=== PATIENT | female | born 1950 | race Caucasian/White ===

== ENCOUNTER 2018-03-24 11:29 | Emergency (ER) | payer OTHER ==
[2018-03-24 11:39] VITALS: RESP 18; TEMP 98.1
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
[2018-03-24] MEDS ORDERED: ACETAMINOPHEN TAB 500 MG TAB PO STA (12:49)
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
[2018-03-24 14:03] VITALS: BP 144/68; PULSE 85
== END 2018-03-24 14:17 | disposition home or self-care (01) ==
LOC: EC 11:29
DX: Z04.1 Encounter for examination and observation following transport accident (principal); M54.2 Cervicalgia; M54.9 Dorsalgia, unspecified; R51 Headache; I10 Essential (primary) hypertension; Z79.899 Other long term (current) drug therapy; Z91.048 Other nonmedicinal substance allergy status; Z98.890 Other specified postprocedural states
CPT/HCPCS: 70450; 72125; 72131; 99284

== ENCOUNTER → 2020-01-31 | Outpatient (CLI) | payer MEDICARE, BC ==
[2020-01-31 13:37] LABS: HGB 13.4 gm/dL (11.4-16.0); Hypochromasia Moderate; MCV 83.8 fL (80.0-100.0); Mean Platelet Volume 6.9; Platelet Count 365 k/uL (150-450); RBC 5.14 m/uL (3.80-5.40); RDW 15.4 % (11.5-15.5); WBC 9.9 k/uL (3.8-10.6)
[2020-01-31 13:39] LABS: Appearance,Urine Clear (Clear); Bacteria,Urine Few /hpf; Bilirubin,Urine Negative (Negative); Blood,Urine Negative (Negative); Color,Urine Yellow; Glucose,Urine (UA) Negative (Negative); Ketones,Urine Negative (Negative); Leukocyte Esterase,Urine Small (Negative); Mucus,Urine Rare /hpf; Nitrite,Urine Negative (Negative); Protein,Urine Trace (Negative); Specific Gravity,Urine 1.022 (1.001-1.035); Squamous Epithelial Cell,Urine 9 /hpf (0-4); Urobilinogen,Urine <2.0 mg/dL (<2.0); WBC,Urine 9 /hpf (0-5)
[2020-01-31 13:40] LABS: INR 0.9 (<1.2); Partial Thromboplastin Time 23.6 sec (22.0-30.0); Prothrombin Time 9.4 sec (9.0-12.0)
[2020-01-31 15:01] LABS: Calcium 9.8 mg/dL (8.4-10.2); Potassium 4.2 mmol/L (3.5-5.1); Total Bilirubin 0.8 mg/dL (0.2-1.3); Total Protein 7.8 g/dL (6.3-8.2)
== END | disposition home or self-care (01) ==
LOC: LABPAT 11:07
PROVIDERS: ATTEND Orthopaedic Surgery
DX: Z01.818 Encounter for other preprocedural examination (principal); M17.11 Unilateral primary osteoarthritis, right knee
CPT/HCPCS: 80053; 81001; 85027; 85610; 85730; 87070

== ENCOUNTER 2020-02-11 09:49 | Inpatient (IN) | payer MEDICARE, BC ==
[2020-02-06 17:44] VITALS: BMI 50.9
[~2020-02-11 09:49] MED LIST: ACETAMINOPHEN TAB 500 MG TAB PO ONE; GABAPENTIN 300 MG CAP PO ONE; HYDROmorphone 0.5 MG/0.5 ML SYRINGE IVP PRN; MELOXICAM 7.5 MG TAB PO ONE; ONDANSETRON 4 MG/2 ML VIAL IVP ONE; ROPIVACAINE 246.25 MG, EPINEPHrine 0.5 MG, KETOROLAC 30 MG, cloNIDine HCL/PF 80 MCG, WA... MISCELLANE ONE; TRANEXAMIC ACID 1,000 MG in SODIUM CHLORIDE 0.9% 100 ML IVPB ONE; VANCOMYCIN 2,250 MG in SODIUM CHLORIDE 0.9% 500 ML 500 ML IVPB ONE; ceFAZolin 3 GM in SODIUM CHLORIDE 0.9% 100 ML IVPB ONE; fentaNYL (PF) 50 MCG/ML 2 ML AMP IV PRN
[2020-02-11] MEDS ORDERED: ONDANSETRON 4 MG/2 ML VIAL ONE (10:18)
[2020-02-11] MEDS: LACTATED RINGERS 1,000 ML IV SCH ×3 (10:43→17:51)
[2020-02-11 10:45] LABS: Glucose,Whole Blood 112 mg/dL (75-99)
[2020-02-11] MEDS ORDERED: DEXAMETHASONE SOD PHOSPHATE 4 MG/ML 1 ML VIAL IVP ONE (10:51)
[2020-02-11] MEDS ORDERED: fentaNYL (PF) 50 MCG/ML 2 ML AMP IVP ONE (10:57)
[2020-02-11] MEDS ORDERED: MIDAZOLAM 2 MG/2 ML VIAL IVP ONE (10:57)
[2020-02-11] MEDS ORDERED: NA PHOS,M-B/NA PHOS,DI-BA 133 ML ENEMA RECTAL PRN (11:30)
[2020-02-11] MEDS ORDERED: bisacodyL 10 MG SUPP RECTAL PRN (11:30)
[2020-02-11] MEDS ORDERED: HYDROmorphone 0.5 MG/0.5 ML SYRINGE IVP PRN (11:30)
[2020-02-11] MEDS ORDERED: MAGNESIUM HYDROXIDE 2,400 MG/10 ML CUP PO PRN (11:30)
[2020-02-11] MEDS ORDERED: diazePAM 5 MG TAB PO PRN (11:30)
[2020-02-11] MEDS ORDERED: hydrOXYzine pamoate 25 MG CAP PO PRN (11:30)
[2020-02-11] MEDS ORDERED: HYDROmorphone 0.2 MG/1 ML SYRINGE IVP PRN (11:30)
[2020-02-11] MEDS ORDERED: NALOXONE 0.4 MG/ML 1 ML VIAL IV PRN (11:30)
[2020-02-11] MEDS ORDERED: ONDANSETRON 4 MG/2 ML VIAL IVP PRN (11:30)
[2020-02-11] MEDS ORDERED: HYDROcodone/APAP 7.5-325MG 1 EACH TAB PO PRN ×2 (11:32)
[2020-02-11] MEDS ORDERED: PROPOFOL 10 MG/ML 20 ML VIAL IV ONE (11:44)
[2020-02-11] MEDS ORDERED: MIDAZOLAM 2 MG/2 ML VIAL ONE (11:44)
[2020-02-11] MEDS ORDERED: LIDOCAINE 1% INJ 10MG/ML (20 ML MDV) ONE (11:44)
[2020-02-11] MEDS ORDERED: PHENYLEPHRINE-0.9% NACL SYG 1 MG/10 ML SYRINGE ONE (11:44)
[2020-02-11] MEDS ORDERED: SODIUM CHLORIDE 0.9% 100 ML BAG ONE (11:44)
[2020-02-11] MEDS ORDERED: fentaNYL (PF) 50 MCG/ML 2 ML AMP ONE (11:44)
[2020-02-11] MEDS ORDERED: SUCCINYLCHOLINE CHLORIDE 100 MG/5 ML SYR IV ONE (11:44)
[2020-02-11] MEDS ORDERED: TRANEXAMIC ACID 1,000 MG/10 ML VIAL ONE (11:44)
[2020-02-11] MEDS ORDERED: ROPIVACAINE 5 MG/ML 30 ML VIAL ONE (11:44)
[2020-02-11] MEDS ORDERED: ePHEDrine SULFATE/0.9% NACL/PF 50 MG/5 ML SYRINGE IV ONE (11:44)
[2020-02-11] MEDS ORDERED: LACTATED RINGERS 1,000 ML IV ONE ×2 (13:02→15:04)
--- NOTE | 2020-02-11 13:21 | P.OP ---
Date of Procedure: 02/11/20 Preoperative Diagnosis: Severe osteoarthritis right knee Postoperative Diagnosis: Severe osteoarthritis right knee Procedure(s) Performed: right total knee arthroplasty Implants: [employer] Journey II CR Oxinium cruciate retaining femoral component size 6, right [employer] Journey nonporous tibial baseplate size 6, right [employer] Journey II, XLPE Deep Dished articular insert, size 10 mm, Size 5-6, right [employer] Journey Stefanie II resurfacing patellar component, oval, 29 mm All components were cemented using Palacos R bone cement The articulation is Oxinium on polyethylene Anesthesia: spinal Surgeon: Galo Bojorquez Industrial [employer] Polisher #1: Patricia Ibrahim Estimated Blood Loss (ml): 30 Pathology: other (Bone and cartilage) Condition: stable Disposition: PACU Indications for Procedure: After failure of conservative treatment we discussed the surgical and nonsurgical treatment options at length. Patient wishes to proceed with a total knee arthroplasty. Complications specific to this procedure were discussed at length, including but not limited to infection, bleeding, stiffness, and nerve injury. Covid-19 was also discussed at length with the patient, and they are aware of the current policies and procedures. The patient was given the option of delaying surgery, but they elect to proceed knowing these risks. Patient is aware of all these complications and informed consent was obtained Operative Findings: Operative findings are consistent with severe osteoarthritis of the right knee Description of Procedure: Patient was seen in the preoperative area and the consent was reviewed and the operative site was marked with a skin marker. The patient verified the procedure and the operative site. An adductor canal pain catheter was placed by anesthesia in the preoperative area. The patient was then brought to the operating room and given preoperative antibiotics intravenously. A gram of transexamic acid was given intravenously. A spinal anesthetic was administered by the anesthesia department. A tourniquet was placed on the upper thigh and the lower extremity was prepped with chlorhexidine and draped in usual sterile fashion. A universal timeout was then performed which confirmed the patient's name, surgical site, ALLERGIES, and consent. The lower extremity was then exsanguinated and tourniquet was inflated to 250 mmHg. A standard anterior midline approach to the knee was performed. The skin and subcutaneous tissue were sharply dissected down to the patellar tendon. A medial parapatellar arthrotomy was then performed. The knee was then extended, the patellar was everted, and the knee was again flexed. The infra-patellar fat pad was removed in order to enhance exposure. The anterior horns of both menisci were excised, and a release was performed to the posterior medial aspect of the knee. On gross visual inspection, there was complete loss of articular cartilage in the medial and patellofemoral joint spaces. There was also significant cartilage damage in the lateral compartment. There were multiple periarticular osteophytes globally about the knee which were then removed with a Ronguer. The femoral canal was then opened with the 9.5 mm intramedullary drill. The 8 mm intramedullary mason was then inserted into the femoral canal with the distal femoral cutting guide set for 5 of valgus. The distal femoral cutting block was then pinned in place. The intramedullary mason was then removed, and the distal femur was then cut. The cutting block was then removed and the cut was checked for symmetry. The resected bone was then measured to confirm the appropriate distal femoral resection. Next, the sizing guide was then placed and set for 3 external rotation based off of the epicondylar axis and Whitesides line. Pins were then placed and the drill holes, and the femur was sized with the sizing stylus. The pins were then removed, and the sizing guide was then removed. The spikes of the femoral block was then placed into the predrilled holes, and malleted into place. Two 45 mm pins were then placed into the fixation holes on the cutting block. An tahmina wing was then used to ensure there would be no notching with the anterior cut. The anterior condyles were cut without notching. The anterior chord cut was then performed, followed by the posterior cut, posterior chamfer cut, and the anterior chamfer cut. The collateral ligaments were protected during the entire process. The cutting block was then removed. Any remaining bone and osteophytes were removed from the femur with a Rominger. The femoral canal was plugged with autologous bone. Attention was then directed to the tibia. The remaining ACL was removed with a Ronguer, and the tibia was then gently subluxed forward with a large bent knee retractor. Any remaining menisci were excised. The posterior lateral corner was cauterized in order to coagulate the lateral geniculate artery. The extra medullary tibial cutting guide was then placed, set for the appropriate rotation, slope, and depth of resection. The proximal tibia cutting guide was then pinned in place. Proximal tibia was then cut and sized. The femoral trial was placed. A narrow saw blade was then used to remove the anterior intracondylar femoral bone. The CR notch trial was then placed. The tibial trial was placed with the appropriate-sized insert. The knee was able to fully extend and flex to 130 and was stable throughout all range of motion. The knee was then extended and the patella was everted. Patella was then measured, and then using an osteotomy guide, the patella was cut at the appropriate level. The patella was then measured and drilled and the patella trial was then placed. The knee was then taken through range of motion with the patella trial and the patella tracked normally using the no thumbs technique.. The knee was then extended patella trial was then removed and the patella was everted. Knee was then flexed and lug holes were drilled through the femoral trial and the femoral trial was then removed. The tibial was then re-exposed, and the tibial broach guide was then pinned in place after it was set for the appropriate rotation to allow for the most coverage without overhang. The tibia was then reamed and broached. The cut surfaces of bone were then irrigated with pulsatile lavage. The posterior structures were injected with the ropivacaine solution. The knee was also irrigated with Irrisept solution. The components were then opened, the cement was mixed, and the components were then cemented in place. The cement was allowed to harden with the knee in full extension. While the cement was hardening, the remaining soft tissues were then injected with a ropivacaine solution, which consisted of 246.25 mg of ropivacaine, 0.5 mg of epinephrine, 30 mg of Toradol, 80 g of clonidine, and 48.45 mL of sterile water, for a total of 100 mL of fluid injected. After the cemented hardened. The tourniquet was released, and hemostasis was obtained. A second gram of transexamic acid was given. The knee was again irrigated. The knee was again taken through range of motion and found to be stable throughout all range of motion of 0-130, and the patella tracked normally. The fascia was then closed with 0 Vicryl followed by #2 strata fix suture. The subcutaneous tissue was closed with 3-0 Vicryl and 3- 0 strata fix. Exofin glue was used for the skin and placed with the knee in flexion. After the glue had dried, and Optafoam silver impregnated dressing was applied. The patient was then transferred to recovery room in stable condition. The certified pathology assistant BRAYAN La was required due the complexity surgery and the need for a skilled rn medical surgical. She assisted in positioning, draping, retraction, and closure of the wound.
[2020-02-11] MEDS ORDERED: ROPIVACAINE 0.2%-NS ON-Q PUMP 1,090 MG, EMPTY PAIN BALL 1 EACH MISCELLANE PRN (13:41)
--- NOTE | 2020-02-11 13:53 | P.ANPRN ---
Procedure Note - Anesthesia - Nerve Block Performed Right Adductor Canal Time Out Performed: Yes (:55) Date of Procedure: 02/11/20 Procedure Start Time: Procedure Stop Time: : Location of Patient: PreOp Indication: Acute Post-Operative Pain, Requested by Surgeon (Dr Galo Bojorquez) Sedation Type: Sedate with meaningful contact maintained Preparation: Sterile Prep, Sterile Dressing Position: Supine Catheter: Indwelling Needle Types: Pajunk Needle Gauge: 21 Ultrasound used to visualize needle placement: Yes Ultrasound used to observe medication spread: Yes Injectate: 0.5% Ropivacaine (see comment for volume) (20cc) Blood Aspirated: No Pain Paresthesia on Injection Noted: No Resistance on Injection: Normal Image Stored and Saved: Yes Events: Uneventful and Well Tolerated
[2020-02-11 14:03] LABS: Glucose,Whole Blood 134 mg/dL (75-99)
[2020-02-11] MEDS: HYDROmorphone 0.5 MG/0.5 ML SYRINGE IVP PRN ×2 (14:20→14:22)
--- NOTE | 2020-02-11 14:32 | XR ---
EXAMINATION TYPE: XR knee limited RT DATE OF EXAM: 02/11/2020 COMPARISON: NONE TECHNIQUE: Two views submitted HISTORY: Post op FINDINGS: There is a prosthetic knee in near anatomic alignment. There is soft tissue edema and emphysema. IMPRESSION: 1. Postoperative change. Appears in near-anatomic alignment
[2020-02-11] MEDS: SODIUM CHLORIDE 0.9% 1,000 ML IV SCH ×2 (17:51→21:49)
[2020-02-11] MEDS: SENNOSIDES-DOCUSATE SODIUM 1 EACH TAB PO SCH (21:49)
[2020-02-11] MEDS ORDERED: SODIUM CHLORIDE 5% OPHTH DROPS 15 ML BTL BOTH EYES PRN (22:25)
[2020-02-11] MEDS ORDERED: VANCOMYCIN 2,250 MG in SODIUM CHLORIDE 0.9% 250 ML IVPB ONE (23:00)
[2020-02-12] MEDS: LEVOTHYROXINE 100 MCG TAB PO SCH (05:36)
[2020-02-12 06:32] LABS: Basophils % (A) 0 %; Eosinophils % (A) 0 %; HCT 36.2 % (34.0-46.0); HGB 11.1 gm/dL (11.4-16.0); Hypochromasia Moderate; Lymphocytes # (A) 1.4 k/uL (1.0-4.8); Lymphocytes % (A) 17 %; MCH 25.6 pg (25.0-35.0); MCHC 30.7 g/dL (31.0-37.0); MCV 83.4 fL (80.0-100.0); Mean Platelet Volume 6.8; Monocytes # (A) 0.4 k/uL (0-1.0); Monocytes % (A) 5 %; Neutrophils # (A) 6.4 k/uL (1.3-7.7); Neutrophils % (A) 76 %; Platelet Count 258 k/uL (150-450); RBC 4.34 m/uL (3.80-5.40); RDW 15.4 % (11.5-15.5); WBC 8.4 k/uL (3.8-10.6)
[2020-02-12 06:50] LABS: Glucose,Whole Blood 112 mg/dL (75-99)
--- NOTE | 2020-02-12 06:50 | P.PN ---
Progress Note - Text The patient is status post right adductor canal catheter placement. The catheter was placed for postoperative pain control, status post total right arthroplasty. Ropivacaine 0.2% is infusing at 8 mLs per hour. The patient has no complaints of right lower extremity numbness or weakness. Patient's VAS score is 1-2-10. Assessment: Patient's adductor canal catheter is in place and working appropriately. Plan: continue infusion and adjust it as needed.
--- NOTE | 2020-02-12 08:30 | P.PN ---
Subjective Progress Note Date: 02/12/20 This is a 69-year-old female who is status post right total knee arthroplasty. This is postoperative day #1 and patient is seen and evaluated at bedside with Dr. Galo Bojorquez. Patient states that her pain is well controlled and she denies any new complaints today. Patient denies any fever/chills, numbness, weakness, tingling, abdominal pain, shortness of breath or chest pain. Objective - Vital Signs Vital signs: Vital Signs Temp 98.1 F 02/12/20 03:11 Pulse 68 02/12/20 03:11 Resp 17 02/12/20 04:40 BP 123/69 02/12/20 03:11 Pulse Ox 96 02/12/20 03:11 Intake & Output 02/11/20 02/12/20 02/12/20 18:59 06:59 18:59 Intake Total 3050 Output Total 30 Balance 3020 Weight 152.3 kg Intake: IV 3050 Output: Estimated Blood Loss 30 Other: Voiding Method Toilet # Voids 2 - Exam Vital signs are stable. Patient is in no acute distress and is alert and oriented 3. Calf is soft and nontender to palpation. Dressing is clean, dry, and intact. Patient has full foot and ankle motion without pain or difficulty. Neurovascular status and circulatory status are intact. - Labs CBC & Chem 7: 02/12/20 05:29 Labs: Abnormal Lab Results - Last 24 Hours (Table) 02/11/20 02/11/20 02/12/20 Range/Units 10:44 14:01 05:29 Hgb 11.1 L (11.4-16.0) gm/dL MCHC 30.7 L (31.0-37.0) g/dL POC Glucose (mg/dL) 112 H 134 H (75-99) mg/dL 02/12/20 Range/Units 06:49 Hgb (11.4-16.0) gm/dL MCHC (31.0-37.0) g/dL POC Glucose (mg/dL) 112 H (75-99) mg/dL Assessment and Plan (1) S/P total knee arthroplasty Current Visit: Yes Status: Acute Code(s): Z96.659 - PRESENCE OF UNSPECIFIED ARTIFICIAL KNEE JOINT SNOMED Code(s): 4582309811129 (2) Osteoarthritis of right knee Current Visit: Yes Status: Acute Code(s): M17.11 - UNILATERAL PRIMARY O STEOARTHRITIS, RIGHT KNEE SNOMED Code(s): 071519386229000 Plan: #1 Continue with routine postoperative care and pain control, leave dressing in place for ten days. #2 Anticoagulation with Eliquis due to history of PE. #3 Physical therapy and CPM today. #4 Appreciate input from medicine. #5 Anticipate discharge home with home care or to the ECF in the next 24-48 hours.
[2020-02-12] MEDS: APIXABAN 2.5 MG TABLET PO SCH ×2 (08:48→21:29)
[2020-02-12] MEDS: CHOLECALCIFEROL 1,000 UNIT TAB PO SCH (08:49)
[2020-02-12] MEDS: Dextroamphetamine/Amphetamine [Adderall] 20 MG Tablet PO SCH (09:23)
--- NOTE | 2020-02-12 13:18 | P.CONS ---
History of Present Illness - Reason for Consult Hypertension - History of Present Illness Patient is a pleasant 69-year-old female admitted for a relative right knee arthroplasty. Patient is clinically doing well blood pressure is a bit lower today. Patient is on losartan and also had a fever thiazide which will be held. The patient is being discharged today these 2 medications need to be held patient is clinically doing well denied any fever chills patient is passing gas. Review of Systems REVIEW OF SYSTEMS: CONSTITUTIONAL: No fever, no malaise, no fatigue. HEENT: No recent visual problems or hearing problems. Denied any sore throat. CARDIOVASCULAR: No chest pain, orthopnea, PND, no palpitations, no syncope. PULMONARY: No shortness of breath, no cough, no hemoptysis. GASTROINTESTINAL: No diarrhea, no nausea, no vomiting, no abdominal pain. NEUROLOGICAL: No headaches, no weakness, no numbness. HEMATOLOGICAL: Denies any bleeding or petechiae. GENITOURINARY: Denies any burning micturition, frequency, or urgency. MUSCULOSKELETAL/RHEUMATOLOGICAL: Denies any joint pain, swelling, or any muscle pain. ENDOCRINE: Denies any polyuria or polydipsia. The rest of the 14-point review of systems is negative. Past Medical History Past Medical History: Diabetes Mellitus, Eye Disorder, Hearing Disorder / Deafness, Hypertension, Osteoarthritis (OA), Pulmonary Embolus (PE), Seizure Disorder, Sleep Apnea/CPAP/BIPAP, Thyroid Disorder Additional Past Medical History / Comment(s): Hx seizure x1 w/ fever as child. NIDDM since 09/2019, being monitored. Glaucoma. Hx kidney stone. Uses BiPAP. Mild BLE edema. History of Any Multi-Drug Resistant Organisms: None Reported Past Surgical History: Back Surgery, Breast Surgery, Joint Replacement, Orthopedic Surgery, Tonsillectomy Additional Past Surgical History / Comment(s): Lumbar fusion L2-4. Cervical disc surg. Rt Total Hip, Lt Total Knee. IVC filter, later removal. Bx Lt breast. Cataracts w/ lens implants. D&C. Past Anesthesia/Blood Transfusion Reactions: No Reported Reaction Past Psychological History: No Psychological Hx Reported Smoking Status: Never smoker Past Alcohol Use History: Rare Past Drug Use History: None Reported Additional Drug Use History / Comment(s): CBD cream use prn - Past Family History Brother(s) Family Medical History: Cancer Additional Family Medical History / Comment(s): prostate, lymphoma Sister(s) Family Medical History: Cancer, Pulmonary Embolus Additional Family Medical History / Comment(s): uterine cancer Medications and Allergies Home Medications Medication Instructions Recorded Confirmed Type Acetaminophen Tab [Tylenol Tab] 650 mg PO Q6HR PRN 03/24/18 02/06/20 History Cholecalciferol [Vitamin D3] 5,000 unit PO DAILY 03/24/18 02/06/20 History DULoxetine HCL [Cymbalta] 120 mg PO HS 03/24/18 02/06/20 History Dextroamphetamine/Amphetamine 20 mg PO DAILY 03/24/18 02/06/20 History [Adderall] Latanoprost [Xalatan 0.005%] 1 drop BOTH EYES HS 03/24/18 02/06/20 History Levothyroxine Sodium [Synthroid] 100 mcg PO DAILY 03/24/18 02/06/20 History Lidocaine [Lidoderm 5% Patch] 1 patch TRANSDERM DAILY PRN 03/24/18 02/06/20 History Metaxalone [Skelaxin] 800 mg PO TID PRN 03/24/18 02/06/20 History diazePAM [Valium] 5 mg PO DAILY PRN 03/24/18 02/06/20 History hydroCHLOROthiazide [Hydrodiuril] 25 mg PO DAILY 03/24/18 02/06/20 History Losartan Potassium [Cozaar] 25 mg PO HS 02/06/20 02/06/20 History Sodium Chloride 5% Ophth Soln 1 drops BOTH EYES DIRECTED PRN 02/06/20 02/06/20 History [Prasanth 128] Vit C/E/Zn/Coppr/Lutein/Zeaxan 1 each PO BID 02/06/20 02/06/20 History [Preservision Areds 2 Softgel] Apixaban [Eliquis] 2.5 mg PO BID #24 tab 02/12/20 Rx HYDROcodone/APAP 7.5-325MG [[place] 1 - 2 tab PO Q6H PRN #32 tab 02/12/20 Rx 7.5-325] Sennosides [Senokot] 2 tab PO DAILY PRN #60 tablet 02/12/20 Rx Allergies Allergy/AdvReac Type Severity Reaction Status Date / Time mold Allergy Cough Verified 02/11/20 10:32 Physical Exam Vitals: Vital Signs Temp Pulse Pulse Resp BP Pulse Ox 02/12/20 08:31 98.7 F 77 16 94/56 95 02/12/20 04:40 17 02/12/20 03:11 98.1 F 68 17 123/69 96 02/11/20 23:36 17 02/11/20 19:58 17 02/11/20 19:46 98.0 F 71 18 122/67 93 L 02/11/20 17:40 16 118/64 90 L 02/11/20 16:59 76 18 123/59 95 02/11/20 16:00 77 16 123/58 95 02/11/20 15:30 78 16 110/57 95 02/11/20 15:00 80 16 123/56 95 02/11/20 14:45 77 16 122/58 96 02/11/20 14:30 74 16 124/59 96 02/11/20 14:15 78 16 128/58 98 02/11/20 14:00 77 16 143/65 98 02/11/20 13:52 98.7 F 80 16 134/61 98 Intake and Output 02/11/20 02/12/20 02/12/20 22:59 06:59 14:59 Intake Total 1000 Balance 1000 Intake: IV 1000 Other: Voiding Method Toilet Toilet # Voids 1 2 2 Weight 152.3 kg PHYSICAL EXAMINATION: GENERAL: The patient is alert and oriented x3, not in any acute distress. Well developed, well nourished. HEENT: Pupils are round and equally reacting to light. EOMI. No scleral icterus. No conjunctival pallor. Normocephalic, atraumatic. No pharyngeal erythema. No thyromegaly. CARDIOVASCULAR: S1 and S2 present. No murmurs, rubs, or gallops. PULMONARY: Chest is clear to auscultation, no wheezing or crackles. ABDOMEN: Soft, nontender, nondistended, normoactive bowel sounds. No palpable organomegaly. MUSCULOSKELETAL: No joint swelling or deformity. EXTREMITIES: No cyanosis, clubbing, or pedal edema. NEUROLOGICAL: Gross neurological examination did not reveal any focal deficits. SKIN: No rashes. Results CBC & Chem 7: 02/12/20 05:29 Labs: Abnormal Lab Results - Last 24 Hours (Table) 11/02/12/20 02/12/20 Range/Units 14:01 05:29 06:49 Hgb 11.1 L (11.4-16.0) gm/dL MCHC 30.7 L (31.0-37.0) g/dL POC Glucose (mg/dL) 134 H 112 H (75-99) mg/dL Assessment and Plan Plan: -Hypertension: Patient is presently hypotensive recommend to hold off for about losartan and hydrochlorothiazide and this may be because patient is postoperative and in the perioperative period -Hypertension -History of PE in the past patient is being discharged on oral Eliquis for DVT prophylaxis at this time -Hypothyroidism -Depression r -Knee arthroplasty: Pain management as per primary service.
[2020-02-12] MEDS ORDERED: DULoxetine HCL 60 MG CAPSULE.DR PO SCH (21:00)
[2020-02-12] MEDS ORDERED: LATANOPROST 0.005% OPHTH DROPS 2.5 ML BTL BOTH EYES SCH (21:00)
[2020-02-12] MEDS ORDERED: LOSARTAN 25 MG TAB PO SCH (21:00)
[2020-02-12] MEDS: ACETAMINOPHEN TAB 325 MG TAB PO PRN (21:28)
[2020-02-12] MEDS: SENNOSIDES-DOCUSATE SODIUM 1 EACH TAB PO SCH (21:29)
[2020-02-13] MEDS ORDERED: CYCLOBENZAPRINE 5 MG TAB PO PRN (01:38)
[2020-02-13] MEDS: LEVOTHYROXINE 100 MCG TAB PO SCH (06:25)
[2020-02-13] MEDS: Dextroamphetamine/Amphetamine [Adderall] 20 MG Tablet PO SCH (06:44)
[2020-02-13 07:41] VITALS: BP 102/66; PULSE 76; RESP 20; TEMP 98.7
[2020-02-13] MEDS: CHOLECALCIFEROL 1,000 UNIT TAB PO SCH (08:14)
[2020-02-13] MEDS: APIXABAN 2.5 MG TABLET PO SCH (08:14)
[2020-02-13] MEDS: ACETAMINOPHEN TAB 325 MG TAB PO PRN (08:23)
--- NOTE | 2020-02-13 09:47 | P.PN ---
Subjective Progress Note Date: 02/13/20 This is a 69-year-old female who is status post right total knee arthroplasty. This is postoperative day #2 and patient is seen and evaluated at bedside today. Patient states that her pain was worse overnight, but otherwise she denies any new complaints today. Patient denies any fever/chills, numbness, weakness, tingling, abdominal pain, shortness of breath or chest pain. Objective - Vital Signs Vital signs: Vital Signs Temp 98.7 F 02/13/20 07:00 Pulse 76 02/13/20 07:00 Resp 20 02/13/20 07:00 BP 102/66 02/13/20 07:00 Pulse Ox 93 L 02/13/20 07:00 Intake & Output 02/12/20 02/13/20 02/13/20 18:59 06:59 18:59 Other: Voiding Method Toilet # Voids 2 1 2 - Exam Vital signs are stable. Patient is in no acute distress and is alert and oriented 3. Calf is soft and nontender to palpation. Dressing is clean, dry, and intact. Patient has full foot and ankle motion without pain or difficulty. Neurovascular status and circulatory status are intact. - Labs CBC & Chem 7: 02/12/20 05:29 Assessment and Plan (1) S/P total knee arthroplasty Current Visit: Yes Status: Acute Code(s): Z96.659 - PRESENCE OF UNSPECIFIED ARTIFICIAL KNEE JOINT SNOMED Code(s): 2130505490659 (2) Osteoarthritis of right knee Current Visit: Yes Status: Acute Code(s): M17.11 - UNILATERAL PRIMARY OSTEOARTHRITIS, RIGHT KNEE SNOMED Code(s): 084882427554673 Plan: #1 Continue with routine postoperative care and pain control, leave dressing in place for ten days. #2 Anticoagulation with Eliquis due to history of PE. #3 Physical therapy and CPM today. #4 Appreciate input from medicine. #5 Anticipate discharge to [facility] tomorrow.
--- NOTE | 2020-02-13 14:16 | P.DS ---
Providers Date of admission: 02/12/20 10:13 Expected date of discharge: 02/13/20 Attending physician: Galo Bojorquez Consults: 02/11/20 11:30 Consult Physician Routine Consulting Provider: Regi Love Consult Reason/Comments: medical management and anticoagulation Do you want consulting provider notified?: Yes Primary care physician: Stated None - Discharge Diagnosis(es) (1) S/P total knee arthroplasty Current Visit: Yes Status: Acute (2) Osteoarthritis of right knee Current Visit: Yes Status: Acute Hospital Course: This is a 69-year-old female with known history of degenerative arthritis of the right knee. The patient presented for evaluation as an outpatient. After discussion and consideration patient elects to proceed with total knee arthroplasty. The patient is seen preoperatively by Dr. Bojorquez and medically cleared for surgery by their primary care physician. Patient is admitted to [facility] on 02/11/2020 for total knee arthroplasty. The procedure is performed without complication or sequelae. The patient is doing well postoperatively. Labs and vital signs are stable on day of discharge. On day of discharge patient's knee incision is healing well. There is minimal erythema. There is no drainage noted at this time. There is minimal soft tissue swelling to right lower extremity. Patient has full foot and ankle motion without difficulty or pain. Calf is soft and nontender to palpation. Neurovascular status to the right lower extremity is intact. Patient is discharged to rehab in good condition. Opioid start talking form is reviewed and signed at bedside. Please see med rec for accurate list of home medications. Plan - Discharge Summary Discharge Rx Participant: Yes New Discharge Prescriptions: New Apixaban [Eliquis] 2.5 mg PO BID #24 tab HYDROcodone/APAP 7.5-325MG [[place] 7.5-325] 1 - 2 tab PO Q6H PRN #32 tab PRN Reason: Pain Sennosides [Senokot] 2 tab PO DAILY PRN #60 tablet PRN Reason: Constipation Continue Latanoprost [Xalatan 0.005%] 1 drop BOTH EYES HS Acetaminophen Tab [Tylenol] 650 mg PO Q6HR PRN PRN Reason: Pain Metaxalone [Skelaxin] 800 mg PO TID PRN PRN Reason: muscle spasms Lidocaine [Lidoderm 5% Patch] 1 patch TRANSDERM DAILY PRN PRN Reason: Pain diazePAM [Valium] 5 mg PO DAILY PRN PRN Reason: Anxiety Dextroamphetamine/Amphetamine [Adderall] 20 mg PO DAILY DULoxetine HCL [Cymbalta] 120 mg PO HS Levothyroxine Sodium [Synthroid] 100 mcg PO DAILY Cholecalciferol [Vitamin D3 (25 Mcg = 1000 Iu)] 5,000 unit PO DAILY Sodium Chloride 5% Ophth Soln [Prasanth 128] 1 drops BOTH EYES DIRECTED PRN PRN Reason: eye discomfort Vit C/E/Zn/Coppr/Lutein/Zeaxan [Preservision Areds 2 Softgel] 1 each PO BID Discontinued hydroCHLOROthiazide [Hydrodiuril] 25 mg PO DAILY Losartan Potassium [Cozaar] 25 mg PO HS Discharge Medication List Acetaminophen Tab [Tylenol] 650 mg PO Q6HR PRN 03/24/18 [History] Cholecalciferol [Vitamin D3 (25 Mcg = 1000 Iu)] 5,000 unit PO DAILY 03/24/18 [History] DULoxetine HCL [Cymbalta] 120 mg PO HS 03/24/18 [History] Dextroamphetamine/Amphetamine [Adderall] 20 mg PO DAILY 03/24/18 [History] Latanoprost [Xalatan 0.005%] 1 drop BOTH EYES HS 03/24/18 [History] Levothyroxine Sodium [Synthroid] 100 mcg PO DAILY 03/24/18 [History] Lidocaine [Lidoderm 5% Patch] 1 patch TRANSDERM DAILY PRN 03/24/18 [History] Metaxalone [Skelaxin] 800 mg PO TID PRN 03/24/18 [History] diazePAM [Valium] 5 mg PO DAILY PRN 03/24/18 [History] Sodium Chloride 5% Ophth Soln [Prasanth 128] 1 drops BOTH EYES DIRECTED PRN 02/06/20 [History] Vit C/E/Zn/Coppr/Lutein/Zeaxan [Preservision Areds 2 Softgel] 1 each PO BID 02/06/20 [History] Apixaban [Eliquis] 2.5 mg PO BID #24 tab 02/12/20 [Rx] HYDROcodone/APAP 7.5-325MG [[place] 7.5-325] 1 - 2 tab PO Q6H PRN #32 tab 02/12/20 [Rx] Sennosides [Senokot] 2 tab PO DAILY PRN #60 tablet 02/12/20 [Rx] Follow up Appointment(s)/Referral(s): Galo Bojorquez DO [Doctor of Osteopathic Medicine] - 02/26/20 1:15 pm Ambulatory/Diagnostic Orders: Continuous Passive Motion (CPM) Machine [DME.AMB1] Time Frame: 3 Weeks, Location: None Selected Patient Instructions/Handouts: *Surgery [facility] - (O&A) Arthroscopic Knee Post-Op Instructions, Osteoarthritis (DC) Activity/Diet/Wound Care/Special Instructions: [facility] Weightbearing as tolerated with a walker. CPM 5-6h daily. Leave dressing intact. May be removed by home care nurse or by patient in 10 days. May shower with dressing on. Recommend use of compression stockings daily until follow up to help prevent swelling and blood clots. May remove at night before sleeping. Please take Eliquis 2.5 mg twice daily for 12 days to help prevent blood clots. Please follow up with [facility] and call with any questions or concerns, . Discharge Disposition: TRANSFER TO SNF/ECF
--- NOTE | 2020-02-13 15:15 | P.PN ---
Subjective Patient overall clinically doing well no overnight events patient can be discharged from medical perspective recommend to hold off on antidepressant medications at this time patient remains to have low systolic blood pressures post surgery. Objective - Vital Signs Vital signs: Vital Signs Temp 98.7 F 02/13/20 07:00 Pulse 76 02/13/20 07:00 Resp 20 02/13/20 07:00 BP 102/66 02/13/20 07:00 Pulse Ox 93 L 02/13/20 07:00 Intake & Output 02/12/20 02/13/20 02/13/20 18:59 06:59 18:59 Other: Voiding Method Toilet # Voids 2 1 2 - Exam PHYSICAL EXAMINATION: GENERAL: The patient is alert and oriented x3, not in any acute distress. Well developed, well nourished. HEENT: Pupils are round and equally reacting to light. EOMI. No scleral icterus. No conjunctival pallor. Normocephalic, atraumatic. No pharyngeal erythema. No thyromegaly. CARDIOVASCULAR: S1 and S2 present. No murmurs, rubs, or gallops. PULMONARY: Chest is clear to auscultation, no wheezing or crackles. ABDOMEN: Soft, nontender, nondistended, normoactive bowel sounds. No palpable organomegaly. MUSCULOSKELETAL: No joint swelling or deformity. EXTREMITIES: No cyanosis, clubbing, or pedal edema. NEUROLOGICAL: Gross neurological examination did not reveal any focal deficits. SKIN: No rashes. - Labs CBC & Chem 7: 02/12/20 05:29 Assessment and Plan Plan: -Hypertension: Patient is presently hypotensive recommend to hold off for about losartan and hydrochlorothiazide and this may be because patient is postoperative and in the perioperative period -Hypertension -History of PE in the past patient is being discharged on oral Eliquis for DVT prophylaxis at this time -Hypothyroidism -Depression r -Knee arthroplasty: Pain management as per primary service.
== END 2020-02-13 15:36 | DRG 470 ==
LOC: OR 09:49 → 4SSUR 13:47 → OR 02-12 10:13
PROVIDERS: ADMIT Orthopaedic Surgery; ATTEND Orthopaedic Surgery
PROC: 0SRC069 Replacement of Right Knee Joint with Oxidized Zirconium on Polyethylene Synthetic Substitute, Cemented, Open Approach (ICD-10-PCS; principal; 2020-02-11 11:30)
DX: M17.11 Unilateral primary osteoarthritis, right knee (principal); I27.20 Pulmonary hypertension, unspecified; I11.9 Hypertensive heart disease without heart failure; I95.9 Hypotension, unspecified; E11.39 Type 2 diabetes mellitus with other diabetic ophthalmic complication; G47.33 Obstructive sleep apnea (adult) (pediatric); M21.061 Valgus deformity, not elsewhere classified, right knee; H42 Glaucoma in diseases classified elsewhere; H40.9 Unspecified glaucoma; E03.9 Hypothyroidism, unspecified; F41.9 Anxiety disorder, unspecified; F32.9 Major depressive disorder, single episode, unspecified; H91.90 Unspecified hearing loss, unspecified ear; Z79.890 Hormone replacement therapy; Z79.899 Other long term (current) drug therapy; Z86.69 Personal history of other diseases of the nervous system and sense organs; Z86.711 Personal history of pulmonary embolism; Z86.718 Personal history of other venous thrombosis and embolism; Z98.42 Cataract extraction status, left eye; Z97.3 Presence of spectacles and contact lenses; Z98.41 Cataract extraction status, right eye; Z96.1 Presence of intraocular lens; Z87.442 Personal history of urinary calculi; Z90.89 Acquired absence of other organs; Z98.1 Arthrodesis status; Z96.641 Presence of right artificial hip joint; Z96.652 Presence of left artificial knee joint; Z87.2 Personal history of diseases of the skin and subcutaneous tissue; Z98.890 Other specified postprocedural states; Z91.048 Other nonmedicinal substance allergy status; Z83.3 Family history of diabetes mellitus; Z82.49 Family history of ischemic heart disease and other diseases of the circulatory system; Z80.7 Family history of other malignant neoplasms of lymphoid, hematopoietic and related tissues; Z80.49 Family history of malignant neoplasm of other genital organs
CPT/HCPCS: 64448; 76942; 85025; 88300